=== PATIENT | female | born 1965 | race Caucasian/White ===

== ENCOUNTER 2016-09-05 16:05 | Emergency (ER) | payer BC ==
[~2016-09-05] VITALS: Ht 152.4 cm; Wt 76.0 kg
[2016-09-05 16:09] VITALS: Ht 152.4 cm; Wt 76.0 kg
--- NOTE | 2016-09-05 17:01 | ERD ---
ER Documentation Chief Complaint Date/Time DATE: 09/05/16 TIME: 17:00 Chief Complaint right shoulder cramping pain/numbness and down right arm HPI 51-year-old female complains of right-sided chest pain across her right shoulder and neck pain for the past 2 weeks. She is right-hand dominant, she states that throughout the day she has developed numbness, and pins and needle type sensation. She states it is worse when she tries to work or use her phone. She is a network communications engineer. She denies any trauma. There is no chest pain, shortness of breath or abdominal pain associated. She denies weakness. The numbness does not affect any other part of her body. ROS All systems reviewed and are negative except as per history of present illness. PMhx/Soc Medical and Surgical Hx: pt denies Medical Hx, pt denies Surgical Hx Hx Alcohol Use: No Hx Substance Use: No Hx Tobacco Use: No Physical Exam Vitals Vital Signs Date Time Temp Pulse Resp B/P Pulse Ox O2 Delivery O2 Flow Rate FiO2 09/05/16 16:09 98.6 64 18 122/68 97 Physical Exam General: Well-developed, well-nourished. The patient appears in no acute distress. HEENT: Head is normocephalic, atraumatic. No scleral icterus. Neck: Supple. Nontender. No midline tenderness, step-offs. Lungs: Clear to auscultation. Normal air movement. Heart: Regular rate and rhythm. S1 and S2 are normal. No murmurs, gallops, or rubs. Abdomen: Nondistended. Extremities: No swelling, no erythema or warmth. Radial, ulnar, median nerves intact bilaterally. Radial pulses 2+ bilaterally. Neurologic: Alert and oriented 3. No focal deficits. Normal speech and gait. Skin: Normal turgor. No rash or lesions. Results 24 hrs PROCEDURE: XR Cervical Spine. CLINICAL INDICATION: Cervical spine pain. TECHNIQUE: AP, lateral and odontoid views of the cervical spine were performed. The images were reviewed on a PACS workstation. COMPARISON: None available FINDINGS: The alignment of the cervical spine is within normal limits. The vertebral body height and osseous mineralization are normal. There is no evidence of fracture or dislocation. There is no significant facet arthropathy. The uncovertebral joints are unremarkable. The intervertebral disc spaces are well maintained. There are no abnormal calcifications. The prevertebral soft tissues are normal. No radiopaque foreign bodies are identified. IMPRESSION: 1. Normal radiographs of the cervical spine. No significant degenerative disc disease or evidence of fracture. RPTAT: HGAS .Tacho Chris MD, MD Date Time Electronically viewed and signed by .Tacho Chris MD, MD on 09/05/2016 17: 48 .S/ PROCEDURE: XR Thoracic Spine. CLINICAL INDICATION: Thoracic spine pain. TECHNIQUE: AP and lateral views of the thoracic spine were obtained. Images reviewed on a PACS workstation. COMPARISON: No prior studies are available for comparison. FINDINGS: The alignment of the thoracic spine is within normal limits. The vertebral body heights and marrow density are normal in appearance. There is preservation of the intervertebral disc spaces. The neural foramina appear patent. The paraspinal soft tissues unremarkable. The visualized portions of the thorax are unremarkable. IMPRESSION: 1. Normal radiograph of the thoracic spine. No evidence of fracture or significant degenerative disc disease. RPTAT: HGAS .Tacho Chris MD, MD Date Time Electronically viewed and signed by .Tacho Chris MD, MD on 09/05/2016 17: 47 .S/ Procedures/MDM 51-year-old female complains of right-sided chest numbness across her shoulder and neck. Patient's symptoms do not have any weakness or signs of stroke or CVA , and unlikely TIA. She had x-rays of the cervical spine and thoracic, there were normal. The patient has had this for 2 weeks and she states that she believes it is related to taking simvastatin. She was asked to follow-up with her primary care physician regarding this, as she may need to alter her medication. At this time she does not have any brachial plexus injury, neuropraxia, signs of transverse myelitis, meningitis, spinal cord injury, acute coronary syndrome, dissection. Departure Diagnosis: Primary Impression: Numbness Condition: Good DORINDA NICOLE PA-C September 05, 2016 17:01
--- NOTE | 2016-09-05 17:48 | RADRPT ---
PROCEDURE: XR Cervical Spine. CLINICAL INDICATION: Cervical spine pain. TECHNIQUE: AP, lateral and odontoid views of the cervical spine were performed. The images were re viewed on a PACS workstation. COMPARISON: None available FINDINGS: The alignment of the cervical spine is within normal limits. The vertebral body height and osseous m ineralization are normal. There is no evidence of fracture or dislocation. There is no significant f acet arthropathy. The uncovertebral joints are unremarkable. The intervertebral disc spaces are well maintained. There are no abnormal calcifications. The prevertebral soft tissues are normal. No radi opaque foreign bodies are identified. IMPRESSION: 1. Normal radiographs of the cervical spine. No significant degenerative disc disease or evidence of fracture. RPTAT: HGAS .Tacho Chris MD, Date Time Electronically viewed and signed by .Tacho Chris MD, on 09/05/2016 17:48 .S/
--- NOTE | 2016-09-05 17:48 | RADRPT ---
PROCEDURE: XR Thoracic Spine. CLINICAL INDICATION: Thoracic spine pain. TECHNIQUE: AP and lateral views of the thoracic spine were obtained. Images reviewed on a PACS wor kstation. COMPARISON: No prior studies are available for comparison. FINDINGS: The alignment of the thoracic spine is within normal limits. The vertebral body heights and marrow density are normal in appearance. There is preservation of the intervertebral disc spaces. The nelida ral foramina appear patent. The paraspinal soft tissues unremarkable. The visualized portions of t he thorax are unremarkable. IMPRESSION: 1. Normal radiograph of the thoracic spine. No evidence of fracture or significant degenerative di sc disease. RPTAT: HGAS .Tacho Chris MD, MD Date Time Electronically viewed and signed by .Tacho Chris MD, on 09/05/2016 17:47 .S/
== END 2016-09-05 18:46 | disposition home or self-care (01) ==
LOC: FTE 16:05
DX: R20.0 Anesthesia of skin (principal)
CPT/HCPCS: 72040; 72072

== ENCOUNTER 2017-02-01 11:17 | Emergency (ER) | payer BC ==
[~2017-02-01] VITALS: Ht 167.6 cm; Wt 77.0 kg
[2017-02-01 11:21] VITALS: Ht 167.6 cm; Wt 77.0 kg
[2017-02-01] MEDS ORDERED: ONDANSETRON (ODT) 4 MG TAB ODT STA (11:48)
[2017-02-01] MEDS ORDERED: MECLIZINE 12.5 MG TAB PO ONE (12:00)
[2017-02-01 12:15] LABS: ADD UMIC YES; UR ASCORBIC ACID 40 mg/dL (NEGATIVE); UR BILIRUBIN (Dip) NEGATIVE (NEGATIVE); UR BLOOD (Dip) NEGATIVE (NEGATIVE); UR CLARITY CLEAR (CLEAR); UR COLOR YELLOW (YELLOW); UR GLUCOSE (Dip) NEGATIVE (NEGATIVE); UR KETONES (Dip) NEGATIVE (NEGATIVE); UR LEUKOCYTE ESTERASE (Dip) 2+ Leu/ul (NEGATIVE); UR NITRITE (Dip) NEGATIVE (NEGATIVE); UR RBC 2 /HPF (0-5); UR SPECIFIC GRAVITY (Dip) 1.011 (1.003-1.030); UR TOTAL PROTEIN (Dip) NEGATIVE (NEGATIVE); UR UROBILINOGEN (Dip) NEGATIVE (NEGATIVE)
--- NOTE | 2017-02-01 12:37 | RADRPT ---
PROCEDURE: CT brain without contrast CLINICAL INDICATION: Dizziness TECHNIQUE: CT of the brain without contrast was performed on a multidetector CT scanner, with multi planar reformats. One or more of the following dose reduction techniques were used: Automated expos ure control, adjustment in mA and / or kV according to patient size, use of iterative reconstructive technique. CTDIvol = 45 mGy; DLP = 720 mGy-cm. COMPARISON: None available FINDINGS: No acute intracranial hemorrhage is identified. No extra-axial fluid collection is seen. There is no mass effect. No midline shift is identified. Ventricles and sulci are within normal limits for size and configuration. The density of the brain is unremarkable. Steinberg-white differentiation is preserved. Calvarium and skull base are intact. Mastoid air cells and imaged paranasal sinuses grossly clear. IMPRESSION: Unremarkable noncontrast CT of the brain. RPTAT: QQ .Jun Haley MD, MD Date Time Electronically viewed and signed by .Jun Haley MD, on 02/01/2017 12:36 .O/
[2017-02-01] MEDS ORDERED: CEPH500C PO (13:16)
[2017-02-01] MEDS ORDERED: MECL-77 PO (13:16)
--- NOTE | 2017-02-01 13:21 | ERD ---
ER Documentation Chief Complaint Date/Time DATE: 02/01/17 TIME: 13:18 Chief Complaint Complains of dizziness x 2 days HPI This 51-year-old female presents with a 2 day history of dizziness. Spinning type dizziness. She denies any fevers. Does not localize to one side. ROS All systems reviewed and are negative except as per history of present illness. Medications Home Meds Active Scripts Cephalexin* (Cephalexin*) 500 Mg Capsule, 500 MG PO Q6 for 5 Days, #28 CAP Prov:ILIA GLEZ MD 02/01/17 Meclizine Hcl* (Meclizine Hcl*) 25 Mg Tablet, 25 MG PO Q8H Y for DIZZINESS, #15 TAB Prov:ILIA GLEZ MD 02/01/17 Allergies Allergies: Coded Allergies: No Known Allergy (Unverified , 02/01/17) PMhx/Soc Medical and Surgical Hx: pt denies Medical Hx, pt denies Surgical Hx Hx Alcohol Use: No Hx Substance Use: No Hx Tobacco Use: No Physical Exam Vitals Vital Signs Date Time Temp Pulse Resp B/P Pulse Ox O2 Delivery O2 Flow Rate FiO2 02/01/17 11:21 97.6 69 20 156/79 97 Physical Exam Const: []Yudith, [id number]. Uncomfortable due to symptoms Head: Atraumatic Eyes: Normal Conjunctiva. Eyes Mont[place] and extraocular movements intact. ENT: Normal External Ears, Nose and Mouth.TMs normal. Neck: Full range of motion..~ No meningismus. Resp: Clear to auscultation bilaterally Cardio: Regular rate and rhythm, no murmurs Abd: Soft, non tender, non distended. Normal bowel sounds Skin: No petechiae or rashes Back: No midline or flank tenderness Ext: No cyanosis, or edema Neur: Awake and alert. No significant findings of cerebellar signs. Cranial nerves II through XII grossly intact. Psych: Normal Mood and Affect Results 24 hrs Laboratory Tests Test 02/01/17 12:00 02/01/17 12:09 Urine Color YELLOW Urine Clarity CLEAR Urine pH 6.0 Urine Specific [place] 1.011 Urine Ketones NEGATIVEmg/dL Urine Nitrite NEGATIVEmg/dL Urine Bilirubin NEGATIVEmg/dL Urine Urobilinogen NEGATIVEmg/dL Urine Leukocyte Esterase 2+Moon/ul Urine Microscopic RBC 2/HPF Urine Microscopic WBC 8/HPF Urine Hemoglobin NEGATIVEmg/dL Urine Glucose NEGATIVEmg/dL Urine Total Protein NEGATIVEmg/dl Bedside Glucose 97mg/dL Current Medications Medications (Trade) Dose Ordered Sig/Didier Route PRN Reason Start Time Stop Time Status Last Admin Dose Admin Ondansetron HCl (Zofran Odt) 8 mg ONCE STAT ODT 02/01/17 11:48 02/01/17 11:50 DC 02/01/17 11:58 Meclizine HCl (Antivert) 25 mg ONCE ONCE PO 02/01/17 12:00 02/01/17 12:01 DC 02/01/17 11:58 Cephalexin (Keflex) 500 mg ONCE ONCE PO 02/01/17 13:30 02/01/17 13:31 Procedures/MDM Urine shows white blood cells and leukocytes. Given absence of specific signs of peripheral vertigo CT brain was performed which was read as normal by the radiologist Accu-Chek is normal. EKG: Rate/Rhythm: [Normal Sinus Rhythm] rate equals 53 QRS, ST, T-waves: [No changes consistent w/ acute ischemia] Impression: [No evidence of ischemia or arrhythmia] Patient presents with signs and symptoms of what appears to be peripheral vertigo. Also signs of UTI we will treat for this. She will discharged home with Antivert, Keflex, primary care follow-up and return precautions. The patient was stable with no new complaints during the ER course. Clinically, there is no current evidence to suggest meningitis, sepsis, acute abdomen, pneumonia, acute coronary syndrome, pulmonary embolism, or any other emergent condition appearing to require further evaluation or hospitalization. The patient should certainly return for any new or worsening symptoms per the aftercare instructions. They should otherwise follow-up with her primary care doctor for reevaluation this week. Departure Diagnosis: Primary Impression: UTI (urinary tract infection) Urinary tract infection type: acute cystitis Hematuria presence: without hematuria Qualified Code: N30.00 - Acute cystitis without hematuria Additional Impression: Vertigo Condition: Stable Patient Instructions: Understanding Urinary Tract Infections (UTIs), Vertigo, Unspecified Additional Instructions: EXAMINES NORMAL. SOLO POQUITO INFECCION EN ORINA. Cheque otro vez con olea doctor primario en el proximo higgins or regresa para mas o nueva simptomas. ILIA GLEZ MD Feb 01, 2017 13:21
[2017-02-01] MEDS ORDERED: CEPHALEXIN 500 MG CAP PO ONE (13:30)
== END 2017-02-01 13:30 | disposition home or self-care (01) ==
LOC: FTE 11:17
DX: N30.00 Acute cystitis without hematuria (principal)
CPT/HCPCS: 70450; 81001; 82962; 99285; Z7610

== ENCOUNTER 2017-06-19 07:33 | Day surgery (SDC) | END 2017-06-19 13:56 | disposition home or self-care (01) ==